=== PATIENT | female | born 1975 | race Caucasian/White ===

== ENCOUNTER 2018-04-08 16:02 | Emergency (ER) | payer BC ==
[~2018-04-08] VITALS: Ht 167.6 cm; Wt 86.4 kg
[2018-04-08 16:47] LABS: EOS % 0.4 % (1.0-5.0); HEMATOCRIT 44.1 % (37.0-47.0); LYMPH# 1.2 (1.50-4.00); MEAN CELL VOLUME 93 fl (78-100); MEAN CORPUSCULAR HEMOGLOBIN 32 pg (27-31); MEAN CORPUSCULAR HGB CONC 34 g/dL (33-37); MEAN PLATELET VOLUME 9.6 fl (7.4-10.4); MONO # 0.4 (0.20-0.80); NEU # 5.8 (1.40-6.50); PLATELET COUNT 284 K/mm3 (130-400); RED BLOOD COUNT 4.75 M/mm3 (4.10-5.30); RED CELL DISTRIBUTION WIDTH 12.5 % (11.5-14.5); WHITE BLOOD COUNT 7.5 K/mm3 (4.8-10.8)
[2018-04-08 17:00] LABS: ALBUMIN 4.4 g/dL (3.5-5.0); ALCOHOL IN-HOUSE 56 mg/dL; ALT/SGPT 20 U/L (9-52); AST-SGOT 26 U/L (14-36); CARBON DIOXIDE 25 mmol/L (22-30); GLUCOSE 110 mg/dL (65-105); POTASSIUM 3.6 mmol/L (3.6-5.0); TOTAL BILIRUBIN 0.4 mg/dL (0.2-1.3); TOTAL PROTEIN 7.5 g/dL (6.3-8.2)
[2018-04-08 17:06] LABS: SODIUM 141 mmol/L (137-145)
[2018-04-08 17:07] LABS: ACETAMINOPHEN 4 ug/mL (10-30)
[2018-04-08 17:17] LABS: URINE APPEARANCE HAZY; URINE COLOR YELLOW
[2018-04-08 17:18] LABS: URINE BILIRUBIN NEGATIVE (NEGATIVE); URINE BLOOD 250 ery/uL (NEGATIVE); URINE GLUCOSE NEGATIVE (NEGATIVE); URINE KETONE 1+ (NEGATIVE); URINE LEUKOCYTE ESTERASE NEGATIVE (NEGATIVE); URINE MUCUS PRESENT (NOT PRESENT); URINE NITRATE NEGATIVE (NEGATIVE); URINE PROTEIN(semi-quant) TRACE mg/dL (NEGATIVE); URINE UROBILINOGEN NORMAL (NORMAL); URINE WBC 0-1 /hpf (0-3)
[2018-04-08 21:26] VITALS: BP 145/85
== END 2018-04-08 21:52 | disposition home or self-care (01) ==
LOC: ED 16:02
PROVIDERS: Nurse Practitioner Primary Care
DX: T14.91XA Suicide attempt, initial encounter (principal); T40.2X2A Poisoning by other opioids, intentional self-harm, initial encounter; T43.222A Poisoning by selective serotonin reuptake inhibitors, intentional self-harm, initial encounter; T51.0X2A Toxic effect of ethanol, intentional self-harm, initial encounter; F32.9 Major depressive disorder, single episode, unspecified; Z72.0 Tobacco use